=== PATIENT | male | born 2000 | race Caucasian/White ===

== ENCOUNTER 2023-09-29 12:14 | Emergency (ER) | payer MEDICAID ==
[~2023-09-29] VITALS: Ht 188 cm; Wt 61.4 kg
[2023-09-29 12:15] VITALS: BP 134/84; PULSE 88; RESP 18; TEMP 97.9
[2023-09-29] MEDS: NALOXONE HCL 1 MG/ML 2 ML SYRINGE IM ONE (13:05)
[2023-09-29] MEDS ORDERED: NALO4SPR NASAL (14:00)
== END 2023-09-29 14:05 | disposition home or self-care (01) ==
LOC: EMS 12:17
DX: F11.10 Opioid abuse, uncomplicated (principal); Z79.899 Other long term (current) drug therapy
CPT/HCPCS: 99283; 96372; J2310